=== PATIENT | female | born 1970 | race Caucasian/White ===

== ENCOUNTER 2018-03-06 08:02 | Day surgery (SDC) | payer OTHER ==
[2018-03-06] VITALS (9 sets, daily range): BP systolic 118–144; BP diastolic 67–90; PULSE 69–104; RESP 16–20; TEMP 97.2–97.8; O2SAT 96–100
[~2018-03-06] VITALS: Ht 157.5 cm; Wt 65.9 kg
[~2018-03-06 08:02] MED LIST: ACET-822 PO; LACTCAP8 PO; MELA1TAB18 PO; TH S8.6T PO; VALT500T PO; VITA500T83 PO
[2018-03-06] MEDS ORDERED: GELATIN 12 MM/7 MM FOAM I-ARTERIAL ONE ×2 (08:03→12:30)
[2018-03-06] MEDS ORDERED: IODIXANOL 320 MG/ML 50 ML VIAL (for RAD SPEC) I-ARTERIAL ONE ×2 (08:03→12:30)
[2018-03-06] MEDS: SODIUM CHLOR 0.9% 1000 ML INJ 1,000 ML IV SCH (08:30)
[2018-03-06] MEDS ORDERED: ceFAZolin 2 GM PREMIX 50 ML IV SCH (08:30)
[2018-03-06] MEDS ORDERED: DIAZEPAM 10 MG TAB PO SCH (08:30)
[2018-03-06] MEDS ORDERED: KETOROLAC TROMETHAMINE 30 MG/ML (IVP) VIAL IV PUSH SCH (08:30)
[2018-03-06] MEDS: ONDANSETRON ODT 4 MG TAB PO SCH ×2 (08:53→20:27)
[2018-03-06] MEDS ORDERED: DIAZEPAM 10 MG TAB PO ONE (10:00)
[2018-03-06] MEDS ORDERED: fentaNYL CITRATE 250 MCG/5 ML AMP ONE ×2 (10:54)
[2018-03-06] MEDS ORDERED: MIDAZOLAM HCL 5 MG/5 ML VIAL ONE (10:54)
[2018-03-06] MEDS ORDERED: NALOXONE HCL 0.4 MG/ML AMP IV PUSH PRN (11:00)
[2018-03-06] MEDS ORDERED: diphenhydrAMINE HCL 25 MG CAP PO PRN (11:00)
--- NOTE | 2018-03-06 11:27 | HHI.HP ---
HPI Service [facility] Hospitalists Primary Care Physician Dory Ackerman M.D. Admission Diagnosis Uterine mass s/p uterine artery ablation Chief Complaint: Abdominal pain Travel History International Travel<30 Days: No Contact w/Intl Traveler <30 Da: No Traveled to Known Affected Are: No History of Present Illness Mrs. Streeter is a pleasant 47 y/o female with hx of migraines and uterine fibroids who was admitted to [facility] on 03/06/18 from interventional radiology after uterine artery ablation. She has a large uterine mass thought to possible be related to uterine leiomyomas. Outpatient pelvic ultrasound in 11/2017 noted the uterus to be 19.1 cm in greatest dimension with what appeared to be a single prominent mass measuring 12.6 x 9.9 cm within the wall of the uterus radiographically consistent with leiomyoma but could not r/o neoplastic process. Pt was seen by Dr. Chavez as an outpt and pt was planned for uterine artery ablation today and then is planned to undergo surgery on Friday03/09/[address] Chavez. Pt is being admitted to the [facility] Hospitalist team following embolization for pain control and observation. Pt is seen in [facility] post- procedure and is on Dilaudid OVERSEER KOSHER KITCHEN as she had significant abd cramping after the procedure. Her pain is better controlled. She denies any chest pain, palpitations, SOB, nausea/vomiting, dizziness or headache. Review of Systems Constitutional: DENIES: Fever, Chills Eyes: DENIES: Vision loss Ears, nose, mouth, throat: DENIES: Hearing loss Respiratory: DENIES: Cough, Shortness of breath Cardiovascular: DENIES: Chest pain, Palpitations Gastrointestinal: COMPLAINS OF: Abdominal pain, Constipation (chronic), DENIES : Nausea, Vomiting Genitourinary: DENIES: Hematuria Musculoskeletal: DENIES: Neck pain Integumentary: DENIES: Rash Neurologic: DENIES: Headache Psychiatric: DENIES: Confusion Past Family Social History Past Medical History Anxiety Migraine headaches Uterine fibroids Hemorrhoids Past Surgical History Colonoscopy [place] [address] Gold Laparoscopy in 1996 Reported Medications Tylenol Extra Strength (Acetaminophen) 500 Mg Tablet 2 Tab PO DAILY Probiotic (Lactobacillus Acidophilus) 10 Billion Cell Cap 1 Cap PO DAILY Melatonin 10 Mg-1 Mg Tab 10 Mg PO HS PRN Vitamin C ER (Ascorbic Acid) 500 Mg Elan 1,000 Mg PO DAILY Valtrex (Valacyclovir HCl) 500 Mg Tab 500 Mg PO DAILY Stool Softener Tablet (Sennosides/Docusate Sodium) 8.6 Mg-50 Mg Tablet 2 Tab PO DAILY Allergies: Coded Allergies: amoxicillin (Verified Allergy, Unknown, VOMITING, 03/06/18) Allergy to Augmentin (Clavulanic acid component) clavulanic acid (Verified Allergy, Unknown, VOMITING, 03/06/18) codeine (Verified Allergy, Unknown, VOMITING, 03/06/18) Family History Mother with hx of MDS which converted to leukemia Social History No reported tobacco or illicit drug use Occasional social alcohol use Pt is She works as a teacher Physical Exam Vital Signs Vital Signs Date Time Temp Pulse Resp B/P (MAP) Pulse Ox O2 Delivery O2 Flow Rate FiO2 03/06/18 08:29 96 Room Air 03/06/18 08:14 97.8 96 18 118/73 (88) 96 Physical Exam GENERAL: This is a well-nourished, well-developed patient, in no apparent distress. SKIN: No rashes, ecchymoses or lesions. Cool and dry. HEENT: Atraumatic. Normocephalic. No temporal or scalp tenderness. No scleral icterus. Airway patent. NECK: Trachea midline, supple, nontender. CARDIO: Regular RESP: CTA bilaterally. No wheezes, rales, or rhonchi. ABD: +BS, soft, nondistended, mild diffuse tenderness. EXT: Extremities without clubbing, cyanosis, or edema. NEURO: Awake and alert. Motor and sensory grossly within normal limits. Normal speech. Imaging Last Impressions Embolization, Transcatheter 03/06/18 0000 Signed Impressions: CONCLUSION: Uncomplicated uterine artery embolization as above. Caprini VTE Risk Assessment Caprini VTE Risk Assessment: No/Low Risk (score <= 1) Caprini Risk Assessment Model Point Value = 1 Point Value = 2 Point Value = 3 Point Value = 5 Age 41-60 Minor surgery BMI > 25 kg/m2 Swollen legs Varicose veins or History of unexplained or recurrent spontaneous Oral contraceptives or hormone replacement Sepsis (< 1 month) Serious lung disease, including pneumonia (< 1 month) Abnormal pulmonary function Acute myocardial infarction Congestive heart failure (< 1 month) History of inflammatory bowel disease Medical patient at bed rest Age 61-74 Arthroscopic surgery Major open surgery (> 45 min) Laparoscopic surgery (> 45 min) Malignancy Confined to bed (> 72 hours) Immobilizing plaster cast Central venous access Age >= 75 History of VTE Family history of VTE Factor V Leiden Prothrombin [id number] Lupus anticoagulant Anticardiolipin antibodies Elevated serum homocysteine Heparin-induced thrombocytopenia Other congenital or acquired thrombophilia Stroke (< 1 month) Elective arthroplasty Hip, pelvis, or leg fracture Acute spinal cord injury (< 1 month) Prophylaxis Regimen Total Risk Factor Score Risk Level Prophylaxis Regimen 0-1 Low Early ambulation 2 Moderate Order ONE of the following: *Sequential Compression Device (SCD) *Heparin 5000 units SQ BID 3-4 Higher Order ONE of the following medications: *Heparin 5000 units SQ TID *Enoxaparin/Lovenox 40 mg SQ daily (WT < 150 kg, CrCl > 30 mL/min) *Enoxaparin/Lovenox 30 mg SQ daily (WT < 150 kg, CrCl > 10-29 mL/min) *Enoxaparin/Lovenox 30 mg SQ BID (WT < 150 kg, CrCl > 30 mL/min) AND/OR *Sequential Compression Device (SCD) 5 or more Highest Order ONE of the following medications: *Heparin 5000 units SQ TID (Preferred with Epidurals) *Enoxaparin/Lovenox 40 mg SQ daily (WT < 150 kg, CrCl > 30 mL/min) *Enoxaparin/Lovenox 30 mg SQ daily (WT < 150 kg, CrCl > 10-29 mL/min) *Enoxaparin/Lovenox 30 mg SQ BID (WT < 150 kg, CrCl > 30 mL/min) AND *Sequential Compression Device (SCD) Assessment and Plan Problem List: (1) Enlarged uterus ICD Codes: N85.2 - Hypertrophy of uterus Status: Chronic Plan: - Pt is a 47 y/o female with hx of migraines and uterine fibroids who was admitted to [facility] on 03/06/18 from interventional radiology after uterine artery ablation. - She has a large uterine mass thought to possible be related to uterine leiomyomas. Outpatient pelvic ultrasound in 11/2017 noted the uterus to be 19.1 cm in greatest dimension with what appeared to be a single prominent mass measuring 12.6 x 9.9 cm within the wall of the uterus radiographically consistent with leiomyoma but could not r/o neoplastic process. - Pt was seen by Dr. Chavez as an outpt and underwent uterine artery ablation on 03/06 - Pt is planned to undergo Robotic assisted laparoscopic hysterectomy on Friday03/09/[address] Chavez. - Pt is being admitted to the [facility] Hospitalist team following embolization for pain control and observation. - Pt is currently on Dilaudid OVERSEER KOSHER KITCHEN as she had significant abd cramping after the procedure. Her pain is better controlled. - Antiemetics PRN - Meds for constipation precautions - Diet as tolerated - Supportive care - DVT prophylaxis with SCDs Assessment and Plan Patient examined. Assessment and plan formulated with Shannon Cooper PA-C. I agree with the above. uterine artery ablation. hysterectomy on Friday. dc tomorrow planned. pcp pump. Shannon Cooper Mar 06, 2018 11:27 Daryl Carrera MD Mar 06, 2018 17:18
[2018-03-06] MEDS ORDERED: ACETAMINOPHEN 325 MG TAB PO PRN ×2 (11:45→13:00)
[2018-03-06] MEDS ORDERED: ONDANSETRON ODT 4 MG TAB PO PRN ×2 (11:45→13:15)
[2018-03-06] MEDS ORDERED: HYDROmorphone HCL PF 2 MG/ML VIAL ONE (12:59)
[2018-03-06] MEDS: HYDROmorphone HCL PCA 6 MG/30 ML IV SCH ×2 (13:31→16:55)
[2018-03-06] MEDS ORDERED: LEVOFLOXACIN 500 MG PREMIX INJ 100 ML IV SCH (14:00)
[2018-03-06] MEDS ORDERED: LEVOFLOXACIN 500 MG TAB PO SCH (14:00)
--- NOTE | 2018-03-06 14:51 | PD.ONC.PN ---
Subjective Subjective Remarks pt resting in ROPU using CLINICAL EDUCATION COORDINATOR pump, states it has helped a lot with the cramping she had no questions in regards to bowel prep Objective Data Date Time Temp Pulse Resp B/P (MAP) Pulse Ox O2 Delivery O2 Flow Rate FiO2 03/06/18 08:29 96 Room Air 03/06/18 08:14 97.8 96 18 118/73 (88) 96 Administered Medications Medications (Trade) Dose Ordered Sig/Karis Route PRN Reason Start Time Stop Time Status Last Admin Dose Admin Diazepam (Valium) 10 mg UNIVERSITY ARCHIVIST PO 03/06/18 08:30 03/09/18 08:29 03/06/18 09:27 Ketorolac Tromethamine (Toradol Inj) 30 mg UNIVERSITY ARCHIVIST IV PUSH 03/06/18 08:30 03/09/18 08:29 03/06/18 09:26 Ondansetron HCl (Zofran Odt) 4 mg UNIVERSITY ARCHIVIST PO 03/06/18 08:30 03/09/18 08:29 03/06/18 08:53 Hydromorphone HCl (Dilaudid CLINICAL EDUCATION COORDINATOR Inj) 6 mg UNSCH IV 03/06/18 11:15 03/06/18 13:31 Objective Remarks GENERAL: Well-nourished, well-developed patient. SKIN: Warm and dry. HEAD: Normocephalic. EYES: No scleral icterus. No injection or drainage. CARDIOVASCULAR: Regular rate and rhythm without murmurs. MUSCULOSKELETAL: Adequate muscle tone. NEUROLOGICAL: No obvious focal deficit. Awake but sleepy, and oriented x3. PSYCHIATRIC: Appropriate mood and affect; insight and judgment normal. Assessment/Plan Problem List: (1) Enlarged uterus ICD Codes: N85.2 - Hypertrophy of uterus Status: Chronic Plan: s/p uterine artery embolization pt admitted to hospitalist service for pain control with CLINICAL EDUCATION COORDINATOR patient for RA Yue ch on Friday03/09/18 she wishes to keep her ovaries if possible. bowel prep on 03/08/18 Anali Feliciano Mar 06, 2018 14:51
--- NOTE | 2018-03-06 15:07 | RADRPT ---
EXAM DATE: 03/06/2018 2:25 PM EDT AGE/SEX: 47 years / Female INDICATIONS: Patient with a history of uterine fibroids. CLINICAL DATA: This is the patient's initial encounter. Patient reports that signs and symptoms have been present for 4 - 6 months and indicates a pain score of 3/10. MEDICAL/SURGICAL HISTORY: AnxietyHemorrhoidsUterine fibroids ColonoscopyLaproscopy COMPARISON: . FLUORO TIME (min): 13.7 IMAGE SERIES: 12 ACCESS SITE: Right femoral artery SEDATION TIME (min): 45 CONTRAST (cc): 90 Visipaque (iodixanol) MEDICATION(S): 5mg midazolam (Versed) IV 250mcg fentanyl (Sublimaze) IV Vancomycin within 2 hrs of procedure, Ancef (or alternative) within 1 hr of procedure. DEVICE(S): Right uterine artery Gelfoam Left uterine artery Gelfoam Right common femoral artery starclose . . PROCEDURE: 1. Ultrasound-guided puncture of the right common femoral artery. 2. Right femoral sheath arteriography 3. Nonselective aortic catheterization. 4. Pelvic arteriography. 5. Subselective catheterization, right uterine artery. 6. Right uterine artery arteriogram. 7. Embolization of the right uterine artery. 8. Follow-up arteriography postembolization, right internal iliac artery 9. Subselective catheterization, left uterine artery 10. Left uterine arteriography 11. Transcatheter embolization of the left uterine artery 12. Follow-up arteriography postembolization, left internal iliac artery 13. Right femoral arteriotomy closure was*closed device 14. Continuous pulse oximetry, hemodynamic and EKG monitoring. 15. Intravenous conscious sedation The risks, benefits and alternatives to the procedure were explained and verbal and written consent w as obtained. The site was prepped in sterile fashion. Full sterile technique was used, including ca p, mask, sterile gloves and gown and a large sterile sheet. Hand hygiene and 2% chlorhexidine and/or betadine/alcohol prep was utilized per protocol for cutaneous antisepsis. Sterile gel and sterile p robe cover were utilized for ultrasound guidance. The skin and subcutaneous tissues were infiltrated with local anesthetic solution. With ultrasound and fluoroscopic guidance the right femoral artery was punctured. The ultrasound romeo ges depicting access guidance were saved and stored in PACS for permanent record. A 4 Tajik vascular sheath was introduced. Sheath arteriography was performed to evaluate the femoral artery for later c losure. An Omni Flush catheter was manipulated into the low abdominal aorta and digital subtraction p elvic arteriography was performed. The Omni Flush catheter was used to select over aortic bifurcation and an angled Glidewire was manipu lated into the left internal iliac artery. A 4 Tajik Cobra catheter was introduced to the internal i liac artery. Imaging was performed to identify the uterine artery. The uterine artery was subsequent catheterized and angiography was performed demonstrating multiple feeding vessels supplying the uter ine fibroids. Embolization was performed using the prescribed size of Gelfoam slurry to complete sta sis. Followup angiography from the internal iliac vessel demonstrates complete stasis and no antegra de flow within the left uterine artery. An Omni Flush catheter was then used to select the ipsilateral right internal iliac artery where imag ing was performed to identify the uterine artery. The uterine artery was subsequently catheterized w ith a 4 Tajik Cobra catheter and angiography was performed demonstrating multiple feeding vessels bocanegra pplying the uterine fibroids. Embolization was performed using the prescribed dose of polyvinyl alco hol and Gelfoam slurry to complete stasis. Followup angiography from the internal iliac vessel demon strates complete stasis and no antegrade flow within the right uterine artery. Conscious sedation was performed with the prescribed dosages and duration as above in the presence of an independent trained radiology nurse to assist in the monitoring of the patient. EKG and oximetry remained stable throughout the procedure. The patient tolerated the procedure well and there were n o complications. The patient was sent to post anesthesia recovery in stable condition. FINDINGS: Classical pelvic arterial anatomy is identified. The iliacs are widely patent bilaterally. Uterine arteries are enlarged bilaterally without evidence of collateral flow to ovaries or other pe lvic structures. CONCLUSION: Uncomplicated uterine artery embolization as above. Electronically signed by: Duke Robison MD 03/06/2018 3:06 PM EDT
[2018-03-06] MEDS ORDERED: MAGNESIUM HYDROXIDE SUSP 30 ML CUP PO PRN (15:30)
[2018-03-06] MEDS ORDERED: BISACODYL 10 MG SUPP RECTAL PRN (15:30)
[2018-03-06] MEDS ORDERED: SENNOSIDES 8.6 MG TAB PO PRN (15:30)
[2018-03-06] MEDS: DOCUSATE SODIUM 50 MG/SENNA 8.6 MG TAB PO SCH (20:27)
[2018-03-06] MEDS: diphenhydrAMINE HCL 50 MG/ML VIAL IV PUSH PRN (21:11)
[2018-03-06] MEDS: PCA - TOTAL MG DILAUDID DELIVERED PER SHIFT SCH (22:00)
[2018-03-06] MEDS ORDERED: methylPREDNISolone SOD SUCC 125 MG/2 ML VIAL IV ONE (23:45)
[2018-03-07 00:05] VITALS: BP 132/77; PULSE 109; RESP 17; TEMP 97.7; O2SAT 97
[2018-03-07] MEDS: diphenhydrAMINE HCL 50 MG/ML VIAL IV PUSH PRN (04:17)
[2018-03-07] MEDS: SODIUM CHLOR 0.9% 1000 ML INJ 1,000 ML IV SCH (04:22)
[2018-03-07 04:37] VITALS: BP 143/88; PULSE 104; RESP 17; TEMP 97.9; O2SAT 99
[2018-03-07] MEDS: PCA - TOTAL MG DILAUDID DELIVERED PER SHIFT SCH (06:00)
[2018-03-07] MEDS: HYDROmorphone HCL PCA 6 MG/30 ML IV SCH (07:37)
[2018-03-07 08:00] VITALS: BP 134/72; PULSE 110; RESP 19; TEMP 98; O2SAT 98
[2018-03-07] MEDS ORDERED: oxyCODONE/ACETAMINOPHEN 5 MG/325 MG TAB PO PRN (08:30)
--- NOTE | 2018-03-07 08:42 | HHI.PR ---
Subjective Remarks Pt reports that she developed a rash on her back, chest and face last night Pt was given Benadryl and a dose of IV Solu-Medrol and feels that the rash is much improved this morning She had not been using as much of the Dilaudid [employer]ESPERSON WOMEN'S DRESSES overnight but had increased pain Objective Vitals Vital Signs Date Time Temp Pulse Resp B/P (MAP) Pulse Ox O2 Delivery O2 Flow Rate FiO2 03/07/18 07:37 18 03/07/18 06:00 16 03/07/18 04:37 97.9 104 17 143/88 (106) 99 03/07/18 00:05 97.7 109 17 132/77 (95) 97 03/06/18 22:00 18 03/06/18 20:17 97.2 101 16 144/82 (102) 100 03/06/18 17:02 97.3 104 18 119/67 (84) 99 03/06/18 16:55 16 03/06/18 15:00 91 16 135/90 (105) 98 03/06/18 14:30 94 16 130/80 (97) 98 03/06/18 14:00 73 16 120/81 (94) 98 03/06/18 13:30 69 18 118/80 (93) 98 03/06/18 13:15 74 20 137/81 (99) 97 03/06/18 13:00 97.5 88 20 142/87 (105) 96 Imaging Last Impressions Embolization, Transcatheter 03/06/18 0000 Signed Impressions: CONCLUSION: Uncomplicated uterine artery embolization as above. Objective Remarks General: NAD, AAOx3 Chest: CTA Cardiac: Regular Abd: +BS, soft nondistended, mild tenderness Ext: No edema A/P Problem List: (1) Enlarged uterus ICD Codes: N85.2 - Hypertrophy of uterus Status: Chronic Plan: - Pt is a 47 y/o female with hx of migraines and uterine fibroids who was admitted to [facility] on 03/06/18 from interventional radiology after uterine artery ablation. - She has a large uterine mass thought to possible be related to uterine leiomyomas. Outpatient pelvic ultrasound in 11/2017 noted the uterus to be 19.1 cm in greatest dimension with what appeared to be a single prominent mass measuring 12.6 x 9.9 cm within the wall of the uterus radiographically consistent with leiomyoma but could not r/o neoplastic process. - Pt was seen by Dr. Chavez as an outpt and underwent uterine artery ablation on 03/06 - Pt is planned to undergo Robotic assisted laparoscopic hysterectomy on Friday03/09/[address] Chavez. - Pt developed a rash overnight on her back, chest and face. - She was given Benadryl and Solu-Medrol with improvement. Pt had been given Ancef and Levaquin IV yesterday post-procedurally. Difficult to tell which may have caused the rash - Pt is currently on Dilaudid [employer]ERSON [employer]OM[employer]S DRESSES but will be changed to oral Percocet for discharge. - Pt is to continue on scheduled Benadryl today and tomorrow and we will give a dose of Prednisone 20mg today and another dose tomorrow for the rash. - Pt can continue the Zofran ODT 4mg Q4-6 hours upon discharge. - Meds for constipation precautions - Diet as tolerated - Discussed with the nurse that she should call radiology to inform them about the pts reaction she had last night and to see if they have any other orders for the pt for discharge. - Anticipate d/c this afternoon Assessment and Plan Patient examined. Assessment and plan formulated with Shannon Cooper PA-C. I agree with the above. s/p uterine artery ablation pt had drug allergy with rash overnight. she took levaquin and ancef at same time and so hard to decide which one. of note the pt has taken cipro in past which would seem to make it less likely to be levaquin. most likely the ancef. she is not allergic to amoxacillin like [employer] says. she gets n/v with augmentin. rash improving with benadryl and prednisone. will dc home today. takes percocet ok. Shannon Cooper Mar 07, 2018 08:42 Daryl Carrera MD Mar 07, 2018 12:41
[2018-03-07] MEDS ORDERED: BENA25CA4 PO (08:44)
[2018-03-07] MEDS ORDERED: PRED20 PO (08:44)
[2018-03-07] MEDS ORDERED: ONDA4TAB7 PO (08:44)
--- NOTE | 2018-03-07 08:46 | HHI.DCPOC ---
Discharge Care Plan Diagnosis: (1) Enlarged uterus Goals to Promote Your Health * To prevent worsening of your condition and complications * To maintain your health at the optimal level Directions to Meet Your Goals Take your medications as prescribed Follow your dietary instruction Follow activity as directed Keep your appointments as scheduled Take your immunizations and boosters as scheduled If your symptoms worsen call your PCP, if no PCP go to Urgent Care Center or Emergency Room Smoking is Dangerous to Your Health. Avoid second hand smoke Call the 24-hour hour crisis hotline for domestic abuse at Shannon Cooper Mar 07, 2018 08:46
[2018-03-07] MEDS ORDERED: predniSONE 20 MG TAB PO SCH (09:00)
[2018-03-07] MEDS ORDERED: ONDANSETRON ODT 4 MG TAB PO ONE (09:00)
[2018-03-07] MEDS: DOCUSATE SODIUM 50 MG/SENNA 8.6 MG TAB PO SCH (09:19)
[2018-03-07] MEDS: oxyCODONE/ACETAMINOPHEN 5 MG/325 MG TAB PO PRN ×2 (09:20→13:51)
[2018-03-07] MEDS ORDERED: diphenhydrAMINE HCL 25 MG CAP PO SCH (11:00)
[2018-03-07] MEDS ORDERED: PERC5TAB12 PO (11:18)
[2018-03-07 12:00] VITALS: BP 137/73; PULSE 116; RESP 20; TEMP 98.4; O2SAT 97
== END 2018-03-07 14:01 | disposition home or self-care (01) ==
LOC: HROP 08:02 → HRIP 08:04 → N07B 16:40 → HROP 03-07 14:01
PROVIDERS: ATTEND Obstetrics & Gynecology Gynecologic Oncology
DX: D25.9 Leiomyoma of uterus, unspecified (principal); D75.82 Heparin induced thrombocytopenia (HIT); D68.51 Activated protein C resistance; F41.9 Anxiety disorder, unspecified; Z86.718 Personal history of other venous thrombosis and embolism; Z88.0 Allergy status to penicillin; Z88.5 Allergy status to narcotic agent
CPT/HCPCS: 36247; 37243; 75736; 86850; 86900; 86901; 99152; 99153; C1760; C1769; C1887; C1894; J0690; J1170; J1200; J1885; J1956; J2250; J2930; J3010; J7030; J7512; Q9967

== ENCOUNTER 2018-03-09 08:23 | Inpatient (IN) | payer OTHER ==
[~2018-03-09] VITALS: Ht 157.5 cm; Wt 67.3 kg
[~2018-03-09 08:23] MED LIST changes: -ACET-822 PO; +BENA25CA4 PO; +ONDA4TAB7 PO; +PERC5TAB12 PO; +PRED20 PO
[2018-03-09] MEDS ORDERED: METOPROLOL TARTRATE 25 MG TAB PO PRN (09:00)
[2018-03-09] MEDS ORDERED: ceFAZolin 1,000 MG/NS 100 ML IV SCH ×2 (09:00)
[2018-03-09] MEDS ORDERED: POVIDONE IODINE 5% (ANTISEPSIS KIT) 4 APPLICATIONS EACH NARE PRN (09:00)
[2018-03-09] MEDS: LACTATED RINGER'S 1000 ML IV PRN (09:00)
[2018-03-09] MEDS ORDERED: SODIUM CHLORID 0.9% 500 ML IV PRN (09:00)
[2018-03-09] MEDS ORDERED: CHLORHEXIDINE GLUCONATE 2 % 1 PACK (2 CLOTHS) TOPICAL PRN (09:00)
[2018-03-09] MEDS ORDERED: HEPARIN SODIUM - SQ 10,000 UNITS/ML VIAL SQ SCH (09:00)
[2018-03-09] MEDS ORDERED: DULC100C PO (09:11)
[2018-03-09] MEDS ORDERED: [UNRECOGNIZED DRUG - CODE] (09:11)
[2018-03-09] MEDS ORDERED: LEVOFLOXACIN 500 MG PREMIX INJ 100 ML IV SCH (09:30)
[2018-03-09] MEDS ORDERED: METRONIDAZOLE 500 MG/100 ML ISONTONIC SOLN IV SCH (09:30)
[2018-03-09] MEDS ORDERED: MORPHINE SULFATE 4 MG/ML INJ ONE (10:18)
[2018-03-09] MEDS ORDERED: ONDANSETRON HCL 4 MG/2 ML VIAL ONE (10:18)
[2018-03-09] MEDS ORDERED: ROPIVACAINE 0.5% PF INJ 30 ML VIAL ONE (11:54)
[2018-03-09] MEDS ORDERED: ROPIVACAINE 1% PF INJ 20 ML AMP ONE (11:55)
[2018-03-09] MEDS ORDERED: LACTATED RINGER'S 1000 ML INJ 2,000 ML IV ONE (12:00)
[2018-03-09] MEDS ORDERED: KETOROLAC TROMETHAMINE 30 MG/ML (IVP) VIAL IV PUSH ONE (12:00)
[2018-03-09] MEDS ORDERED: DEXAMETHASONE SOD PHOS 4 MG/ML VIAL IV ONE (12:00)
[2018-03-09] MEDS ORDERED: PHENYLEPH/NS 1000 MCG/10 ML SYR IV ONE (12:00)
[2018-03-09] MEDS ORDERED: ROCURONIUM INJ 50 MG/5 ML SYRINGE IV PUSH ONE (12:00)
[2018-03-09] MEDS ORDERED: PROPOFOL 200 MG/20 ML AMP IV ONE (12:00)
[2018-03-09] MEDS ORDERED: ONDANSETRON HCL 4 MG/2 ML VIAL IV PUSH ONE (12:00)
[2018-03-09] MEDS ORDERED: LIDOCAINE HCL 1% PF 5 ML SYRINGE OTHER ONE (12:00)
[2018-03-09] MEDS ORDERED: SUGAMMADEX SODIUM 200 MG/2 ML VIAL IV PUSH ONE (14:52)
[2018-03-09] MEDS ORDERED: MIDAZOLAM HCL 2 MG/2 ML VIAL ONE (14:54)
[2018-03-09] MEDS ORDERED: NALOXONE HCL 0.4 MG/ML AMP IV PUSH PRN (15:45)
[2018-03-09] MEDS: PCA - TOTAL MG MORPHINE DELIVERED PER SHIFT SCH ×2 (15:45→22:00)
[2018-03-09] MEDS ORDERED: SODIUM CHLORIDE 0.9% FLUSH 10 ML FLUSH IV FLUSH PRN ×2 (15:45)
[2018-03-09] MEDS ORDERED: DO NOT ADM ANY ANTICOAGULANT DRUGS PRN (16:00)
[2018-03-09] MEDS: D5-1/2 NS + KCL 20 MEQ INJ 1,000 ML IV SCH ×2 (16:00→23:07)
[2018-03-09] MEDS ORDERED: *morphine SULFATE 8 MG/ML PERIprocedure ONLY ONE ×2 (16:25→16:38)
[2018-03-09] MEDS ORDERED: *PROMETHAZINE 25 MG/ML VIAL PERIprocedural use ONLY ONE (16:29)
[2018-03-09] MEDS ORDERED: HYDROmorphone HCL PF 2 MG/ML VIAL ONE (16:47)
[2018-03-09] MEDS: KETOROLAC TROMETHAMINE 30 MG/ML (IVP) VIAL IVP SCH ×2 (16:55→23:06)
[2018-03-09 18:04] VITALS: BP 146/86; PULSE 102; RESP 18; TEMP 98.7; O2SAT 98
[2018-03-09 18:16] VITALS: PULSE 100
[2018-03-09 20:13] VITALS: PULSE 98
[2018-03-09 20:57] VITALS: BP 141/86; PULSE 104; RESP 18; TEMP 98.3; O2SAT 100
[2018-03-09] MEDS: SODIUM CHLORIDE 0.9% FLUSH 10 ML FLUSH IV FLUSH SCH (20:58)
[2018-03-09] MEDS: DOCUSATE SODIUM 100 MG CAP PO SCH (20:58)
[2018-03-09] MEDS ORDERED: SODIUM CHLORIDE 0.9% FLUSH 10 ML FLUSH IV FLUSH SCH (21:00)
[2018-03-09] MEDS: LORazepam 0.5 MG TAB PO PRN (23:07)
[2018-03-10] VITALS (14 sets, daily range): BP systolic 128–152; BP diastolic 76–94; PULSE 111–136; RESP 16–20; TEMP 97.5–100.9; O2SAT 94–100
[2018-03-10] MEDS: oxyCODONE/ACETAMINOPHEN 5 MG/325 MG TAB PO PRN ×2 (03:10→16:09)
[2018-03-10] MEDS: ONDANSETRON ODT 4 MG TAB PO PRN (03:14)
[2018-03-10] MEDS: KETOROLAC TROMETHAMINE 30 MG/ML (IVP) VIAL IVP SCH ×4 (05:46→23:06)
[2018-03-10 05:51] LABS: BASOPHIL % 0.2 % (0.0-2.0); EOSINOPHIL % 0.2 % (0.0-4.0); HEMATOCRIT 30.9 % (35.0-46.0); HEMOGLOBIN 10.1 GM/DL (11.6-15.3); LYMPH % 5.8 % (9.0-44.0); LYMPHOCYTE # 0.8 TH/MM3 (1.0-4.8); MEAN CELL VOLUME 80.2 FL (80.0-100.0); MEAN CORPUSCULAR HEMOGLOBIN 26.3 PG (27.0-34.0); MEAN CORPUSCULAR HGB CONC 32.7 % (32.0-36.0); MEAN PLATELET VOLUME 8.8 FL (7.0-11.0); MONO % 6.7 % (0.0-8.0); MONOCYTE # 0.9 TH/MM3 (0-0.9); NEUT % 87.1 % (16.0-70.0); PLATELET COUNT 268 TH/MM3 (150-450); RED BLOOD COUNT 3.85 MIL/MM3 (4.00-5.30); RED CELL DISTRIBUTION WIDTH 16.8 % (11.6-17.2); WHITE BLOOD COUNT 13.7 TH/MM3 (4.0-11.0)
[2018-03-10] MEDS: PCA - TOTAL MG MORPHINE DELIVERED PER SHIFT SCH ×3 (06:00→21:47)
[2018-03-10 06:17] LABS: BICARBONATE 25.2 MEQ/L (21.0-32.0); CALCIUM 7.8 MG/DL (8.5-10.1); CREATININE 0.62 MG/DL (0.50-1.00)
--- NOTE | 2018-03-10 07:28 | HHI.PR ---
Subjective . c/o pain, fatigue, poor night's sleep some nausea Objective . Tmax 100.9, hr 98-134, 18-20,BP stable i/o > 30ml/hr K 3.3 hgb 10 alert, anxious, uncomfortable , nad lungs cta at apices, basilar rales, abd soft, clean, dry, education reporter no bleeding ext nt, scds in place. Assessment/Plan . POD #1 doing ok in early post-op period findings at surgery and preliminary path reviewed continue ivf, replace K symptomatic meds for nausea, pain, anxiety increase spirometry, oob to chair, ambulate with assistance d/c michelle when ambulatory, u/a with c&s Laura Chavez MD Mar 10, 2018 07:28
[2018-03-10] MEDS: LORazepam 0.5 MG TAB PO PRN ×2 (08:02→23:05)
[2018-03-10] MEDS: DOCUSATE SODIUM 100 MG CAP PO SCH ×2 (08:02→20:13)
[2018-03-10] MEDS: DOCUSATE SODIUM 50 MG/SENNA 8.6 MG TAB PO SCH (08:02)
[2018-03-10] MEDS: SODIUM CHLORIDE 0.9% FLUSH 10 ML FLUSH IV FLUSH SCH ×2 (08:03→20:17)
[2018-03-10] MEDS: D5-1/2 NS + KCL 20 MEQ INJ 1,000 ML IV SCH ×3 (08:03→23:42)
[2018-03-10] MEDS: POTASSIUM CHLOR 20 MEQ PREMIX 100 ML IV SCH ×2 (08:04→09:43)
[2018-03-10] MEDS: valACYclovir HCL 500 MG TAB PO SCH (08:04)
[2018-03-10] MEDS: MORPHINE SULFATE 30 MG/30 ML PCA IV SCH ×2 (08:19→17:37)
[2018-03-10 09:38] LABS: BILIRUBIN, URINE NEG (NEG); BLOOD, URINE NEG (NEG); GLUCOSE,URINE NEG (NEG); KETONE, URINE NEG (NEG); NITRITE,URINE NEG (NEG); URINE COLOR Straw (YELLW/STRAW); URINE LEUKOCYTE ESTERASE NEG (NEG)
--- NOTE | 2018-03-10 15:13 | MP ---
cc: Laura Chavez MD, Andrew H MD Casimiro,Dory ALEXANDER DATE OF OPERATION: 03/09/2018 DATE OF PROCEDURE: 03/09/2018. PREOPERATIVE DIAGNOSIS: Markedly enlarged uterus with multiple uterine masses. POSTOPERATIVE DIAGNOSIS: Markedly enlarged uterus with multiple uterine masses. PROCEDURE: Exploratory laparotomy, total abdominal hysterectomy, bilateral salpingectomy, bilateral oophoropexy and aspiration of right ovarian cyst. SURGEON: Laura Chavez MD LICENS[address] COURT MAGISTRATE: [place] data control assistant. ANESTHESIA: General endotracheal anesthesia. ESTIMATED BLOOD LOSS: 250 mL. IV FLUIDS: 1300 mL. URINE OUTPUT: 600 mL. INDICATIONS FOR PROCEDURE: This is a 47-year-old female with symptomatic markedly enlarged uterus radiographically thought to be consistent with leiomyomas, whereas the fibroids have been present for many years. They have been gradually increasing in size and becoming more symptomatic. She has been counseled extensively regarding treatment options including the pros and cons of surgery. She has undergone a trial of Depo-Lupron as well as preoperative uterine artery embolization. She has been counseled in detail and is in favor of definitive surgery. She is seen again in the preoperative holding area where the findings and plan of care are again discussed. She is in favor of having the uterus and cervix removed. She would like the fallopian tubes removed, would like her ovaries preserved unless there is a risk of malignancy in the ovaries or if there is a definitive malignancy in the uterus. FINDINGS: The uterus was enlarged to between 18 and 20 cm, firm, wide fundus, wide lower uterine segment, but it did narrow down into a normal-appearing long cervix. There was no overt adenopathy in the pelvis or periaortic region. The left tube and ovary grossly appeared normal. The right ovary had a functional-appearing cyst with a small hemorrhagic cyst but no neoplastic change. Frozen section analysis of the uterus was consistent with multiple leiomyomas. There was no overt change on preliminary assessment to suggest malignancy. Assessment of the peritoneal cavity showed the liver diaphragm edges to be smooth. The large and small bowel and adjacent mesentery were normal, without obvious implants. No adenopathy or other significant abnormality. DESCRIPTION OF PROCEDURE: She was taken to the operating room and placed in dorsal lithotomy position after general endotracheal anesthesia was administered. A timeout was undertaken. She was identified by site recognition and hospital ID bracel and the proposed procedure was reviewed and confirmed. She was carefully positioned in Yellofin stirrups. Arms were relaxed out to the sides. All sites were noted to be properly aligned with no malalignment or pressure points. She was prepped and draped in sterile fashion, Ribeiro catheter placed in the bladder. Incision was made from the symphysis toward the umbilicus, carried down to the level of the fascia. The fascia was entered. The rectus muscles were in the midline and the peritoneal cavity was entered. Initial assessment confirmed the size and width of the uterus at that time with limited mobility and excision was extended to the level of the umbilicus. The uterus was able to be delivered through the abdominal wall incision, which allowed better understanding of the anatomy and better exposure to the lower uterine segment and cervix. Bookwalter retractor and lap pads were used to assist in surgical exposure. The right round ligament was doubly suture ligated, transected. The anterior and posterior leaves of the broad ligament were opened. The right ureter was identified and the intervening peritoneum was opened and the right uteroovarian ligament was doubly clamped, cut, and suture ligated thereby preserving the right tube and ovary. A small rent was made in the cyst on the right ovary and it was drained. Overall, it had a clear fluid and benign appearance with a small hemorrhagic component and no evidence of neoplasm. Attention was directed toward the left side where the left round ligament was doubly suture ligated and transected. The anterior and posterior leaves of the broad ligament were opened. The left ureter was identified. The intervening peritoneum was opened. The left uteroovarian ligament was isolated, doubly clamped, cut and doubly suture ligated, thereby preserving the left tube and ovary. The vesicouterine peritoneum was dissected off the lower uterine segment and cervix and the dissection was carried down below the level of the cervix. Posterior peritoneum was opened bilaterally and the uterine vessels were skeletonized bilaterally. Now, the uterine vessels were doubly clamped bilaterally, further showing the uterus to rohan with some preliminary blanching already noted given that she was status post prior embolization. On the right side, the uterine vessels were transected and doubly suture ligated. The cardinal, paracervical and uterosacral ligaments were isolated being clamped, cut, and suture ligated in a stepwise fashion immediately adjacent to the cervix in a stepwise fashion until a curved Savage clamp could be placed below the cervix at the lateral vaginal angle. Attention was then directed to the left side where similarly the left uterine vessels were transected, doubly suture ligated. The cardinal, paracervical and uterosacral ligaments were isolated, clamped, cut, and suture ligated in a stepwise fashion until a curved Savage clamp could be placed below the cervix at the left vaginal angle. Sharp dissection was used to separate the cervix from the upper vagina. The specimen was inspected and it appeared as though the entire cervix had been resected. It was sent for frozen section analysis. The corners of the vaginal apex were secured with [id number] sutures including the posterior peritoneum and edge of the uterosacral ligament. There was asymmetry in that there was additional tissue along the anterior edge of the cervix, raising the possibility of a small rim of residual cervix, which was then removed with sharp dissection and labeled as cervicovaginal margin. The vaginal cuff was then closed with interrupted [id number] 0 Vicryl sutures which rendered the cuff completely hemostatic, well supported. Next attention was directed to the adnexa. The right fallopian tube was isolated, elevated with [place] clamp and cautery and sharp dissection were used to remove the entire right fallopian tube. Small bleeders were rendered hemostatic with bipolar cautery and then a 0 Vicryl suture was used to pex the right ovary to the round ligament remnant with [id number] suture closure and the adjacent peritoneal defect was closed with a running suture with the blood supply aligned in normal anatomical alignment. Attention was directed toward the left side where similarly the left fallopian tube was elevated with Margie clamps. Sharp dissection cautery was used to remove the left fallopian tube, and then the left ovary was pexed to the pelvic sidewall using the residual utero-ovarian ligament and the round ligament, sutured with 0 Vicryl suture and the adjacent peritoneal defect was closed with normal anatomical alignment without torsion. The pelvis was thoroughly irrigated, small bleeders rendered hemostatic with bipolar cautery. There was a good margin between the bladder edge and the vaginal cuff suture line. The bladder was intact. There was good peristalsis of ureters bilaterally, adequate hemostasis. To assist in continued hemostasis, hemostatic Bashir powder was placed across the vaginal cuff and in the lateral pelvic sidewalls. Frozen section came back showing leiomyomas with no evidence of malignancy and therefore, it was felt that all reasonable surgical objectives had been completed. The Bookwalter retractor was disassembled and the lap pads were removed from the peritoneal cavity. Visual and manual inspection confirmed there were no remaining foreign objects in the peritoneal cavity. The anatomy was again surveyed with findings as described above. The abdominal wall was closed with a looped 0 PDS in a continuous modified Smead-Shah fashion starting at the apices and meeting in the midpoint where the sutures were tied. Subcutaneous tissue was irrigated and Elizabeth's fascia reapproximated with interrupted 2-0 Vicryl sutures and then a 3-0 Vicryl subcuticular closure was done. Steri-Strips were placed over the incision, followed by dry, sterile dressing. Pelvic exam confirmed there were no remaining foreign objects in the vagina. The cuff was well-supported, hemostatic. Final counts were correct. She was returned to dorsal supine position and was pending reversal of anesthesia when I left the operating room to precede her to the postanesthesia care unit and to speak to family members who were waiting in the family waiting area. MD NANCY Lee/TOYA , 02:24 PM , 03:12 PM
[2018-03-10] MEDS ORDERED: ACETAMINOPHEN 500 MG CPLT PO ONE (16:45)
--- NOTE | 2018-03-10 16:54 | PD.ONC.PN ---
Subjective Subjective Remarks post op day #1 Patient is resting in bed RN called stating patient tachycardic, pt denies cp has been OOB to ambulate and bathroom using SEAFOOD PACKER, pain at this time 6-03/31 Percocet 5/325 given pt sats 100% on room air, temp 103.0 using IS but states at times feels SOA when talking otherwise no complaints Objective Data Date Time Temp Pulse Resp B/P (MAP) Pulse Ox O2 Delivery O2 Flow Rate FiO2 03/10/18 12:43 98.7 115 20 142/86 (104) 98 03/10/18 09:23 114 03/10/18 08:58 98.6 115 16 128/76 (93) 96 03/10/18 08:19 18 03/10/18 06:00 16 03/10/18 04:02 134 03/10/18 03:30 100.9 136 18 150/81 (104) 94 03/10/18 03:19 130 03/10/18 00:01 111 03/10/18 00:00 98.8 111 18 152/94 (113) 100 03/09/18 20:57 98.3 104 18 141/86 (104) 100 03/09/18 20:13 98 03/09/18 18:16 100 03/09/18 18:04 98.7 102 18 146/86 (106) 98 03/09/18 17:15 92 13 134/70 (91) 95 Room Air 03/09/18 17:00 105 15 139/83 (101) 100 Nasal Cannula 2 03/09/18 16:45 93 16 139/85 (103) 100 Nasal Cannula 2 03/10/18 03/10/18 03/10/18 07:00 15:00 23:00 Intake Total 1450 ml 480 ml 800 ml Output Total 900 ml 1350 ml 550 ml Balance 550 ml -870 ml 250 ml Result Diagram: 03/10/1851203/10/18512 Laboratory Results Laboratory Tests Test 03/10/18 05:13 03/10/18 09:11 White Blood Count 13.7 TH/MM3 Red Blood Count 3.85 MIL/MM3 Hemoglobin 10.1 GM/DL Hematocrit 30.9 % Mean Corpuscular Volume 80.2 FL Mean Corpuscular Hemoglobin 26.3 PG Mean Corpuscular Hemoglobin Concent 32.7 % Red Cell Distribution Width 16.8 % Platelet Count 268 TH/MM3 Mean Platelet Volume 8.8 FL Neutrophils (%) (Auto) 87.1 % Lymphocytes (%) (Auto) 5.8 % Monocytes (%) (Auto) 6.7 % Eosinophils (%) (Auto) 0.2 % Basophils (%) (Auto) 0.2 % Neutrophils # (Auto) 12.0 TH/MM3 Lymphocytes # (Auto) 0.8 TH/MM3 Monocytes # (Auto) 0.9 TH/MM3 Eosinophils # (Auto) 0.0 TH/MM3 Basophils # (Auto) 0.0 TH/MM3 CBC Comment DIFF FINAL Differential Comment Blood Urea Nitrogen 5 MG/DL Creatinine 0.62 MG/DL Random Glucose 140 MG/DL Calcium Level 7.8 MG/DL Sodium Level 140 MEQ/L Potassium Level 3.3 MEQ/L Chloride Level 106 MEQ/L Carbon Dioxide Level 25.2 MEQ/L Anion Gap 9 MEQ/L Estimat Glomerular Filtration Rate 104 ML/MIN Urine Color Straw Urine Turbidity CLEAR Urine pH 8.0 Urine Specific [place] 1.004 Urine Protein NEG mg/dL Urine Glucose (UA) NEG mg/dL Urine Ketones NEG mg/dL Urine Occult Blood NEG Urine Nitrite NEG Urine Bilirubin NEG Urine Urobilinogen LESS THAN 2 mg/dL Urine Leukocyte Esterase NEG Urine RBC 2 /hpf Urine WBC 4 /hpf Microscopic Urinalysis Comment CULT NOT INDICATED Administered Medications Medications (Trade) Dose Ordered Sig/Karis Route PRN Reason Start Time Stop Time Status Last Admin Dose Admin Lactated Ringer's 1,000 ml @ 30 mls/hr Q24H PRN IV SEE LABEL COMMENTS 03/09/18 09:00 03/12/18 08:59 03/09/18 09:00 Povidone Iodine (Betadine 5% Antisepsis Kit) 1 applic SCREEN PRINT OPERATOR PRN EACH NARE SEE LABEL COMMENTS 03/09/18 09:00 03/12/18 08:59 03/09/18 09:00 Chlorhexidine Gluconate (Chlorhexidine 2% Cloth) 3 pack SCREEN PRINT OPERATOR PRN TOPICAL SEE LABEL COMMENTS 03/09/18 09:00 03/12/18 08:59 03/09/18 08:55 Metronidazole 100 ml @ 100 mls/hr SCREEN PRINT OPERATOR IV 03/09/18 09:30 03/12/18 09:29 03/09/18 11:35 Levofloxacin/ Dextrose 100 ml @ 100 mls/hr SCREEN PRINT OPERATOR IV 03/09/18 09:30 03/12/18 09:29 03/09/18 11:38 Docusate Sodium (Colace) 100 mg BID PO 03/09/18 21:00 03/10/18 08:02 Ondansetron HCl (Zofran Odt) 4 mg Q6H PRN PO NAUSEA OR VOMITING 03/09/18 15:45 03/10/18 03:14 Senna/Docusate Sodium (Bettye-Colace) 2 tab DAILY PO 03/10/18 09:00 03/10/18 08:02 Potassium Chloride/Dextrose/ Sod Cl 1,000 ml @ 125 mls/hr Q8H IV 03/09/18 15:42 03/10/18 08:03 Ketorolac Tromethamine (Toradol Inj) 30 mg Q6H IVP 03/09/18 17:00 03/12/18 11:01 03/10/18 16:10 Oxycodone/ Acetaminophen (Percocet 5-325 Mg) 1 tab Q4H PRN PO PAIN SCALE 1 TO 5 03/09/18 15:45 03/10/18 16:09 Oxycodone/ Acetaminophen (Percocet 5-325 Mg) 2 tab Q4H PRN PO PAIN SCALE 6 TO 10 03/09/18 15:45 03/10/18 03:10 Lorazepam (Ativan) 0.5 mg Q8H PRN PO ANXIETY 03/09/18 15:45 03/10/18 08:02 Morphine Sulfate (Morphine 1 Mg/ ml SEAFOOD PACKER) 30 mg UNSCH IV 03/09/18 15:45 03/10/18 08:19 SEAFOOD PACKER Dosage Infused (Pha) 1 Q8HR .XX 03/09/18 15:45 03/10/18 06:00 Objective Remarks GENERAL: Well-nourished, well-developed patient. IN NAD SKIN: Warm and dry. HEAD: Normocephalic. EYES: No scleral icterus. No injection or drainage. NECK: Supple CARDIOVASCULAR: tachycardia, no MMR RESPIRATORY: Breath sounds equal bilaterally, diminished in bases No accessory muscle use. no SOA EXTREMITIES: teds MUSCULOSKELETAL: Adequate muscle tone. NEUROLOGICAL: No obvious focal deficit. Awake, alert, and oriented x3. PSYCHIATRIC: Appropriate mood and affect; insight and judgment normal. Assessment/Plan Problem List: (1) Tachycardia ICD Codes: R00.0 - Tachycardia, unspecified Status: Acute Plan: lab stat: lactic acid, cbc with diff, TSH and free T4, BMP, mag and phos blood cultures add: levaquin 500mg Q24 hours flagyl 500mg Q 8 hours tylenol 500mg X 1 now CXR PA/Lat continue IVF and SEAFOOD PACKER Percocet for breakthrough pain Attending Statement Discussed with Dr. Chavez, patient and RN. Anali Feliciano Mar 10, 2018 16:54
[2018-03-10 17:14] LABS: AUTOMATED NEUTROPHIL # 10.4 TH/MM3 (1.8-7.7); BASOPHIL % 0.2 % (0.0-2.0); EOSINOPHIL # 0.1 TH/MM3 (0-0.4); EOSINOPHIL % 0.5 % (0.0-4.0); HEMATOCRIT 33.8 % (35.0-46.0); HEMOGLOBIN 10.8 GM/DL (11.6-15.3); LYMPH % 7.5 % (9.0-44.0); LYMPHOCYTE # 0.9 TH/MM3 (1.0-4.8); MEAN CELL VOLUME 81.4 FL (80.0-100.0); MEAN CORPUSCULAR HEMOGLOBIN 25.9 PG (27.0-34.0); MEAN CORPUSCULAR HGB CONC 31.8 % (32.0-36.0); MEAN PLATELET VOLUME 8.5 FL (7.0-11.0); MONO % 7.9 % (0.0-8.0); NEUT % 83.9 % (16.0-70.0); PLATELET COUNT 302 TH/MM3 (150-450); RED BLOOD COUNT 4.16 MIL/MM3 (4.00-5.30); WHITE BLOOD COUNT 12.4 TH/MM3 (4.0-11.0)
[2018-03-10] MEDS: metroNIDAZOLE 500 MG INJ 100 ML IV SCH (17:33)
--- NOTE | 2018-03-10 17:35 | RADRPT ---
EXAM DATE: 03/10/2018 5:30 PM EDT AGE/SEX: 47 years / Female INDICATIONS: Fever, short of breath. CLINICAL DATA: This is the patient's subsequent encounter. Patient reports that signs and symptoms h ave been present for 1 week and indicates a pain score of 0/10. MEDICAL/SURGICAL HISTORY: None. . Exploratory laparotomy. COMPARISON: No prior exams available for comparison. FINDINGS: Patchy posterior left lower lobe airspace disease with minimal airspace disease in the right lung bas e. Cardiomediastinal contours are within normal limits. Bony thorax is intact. CONCLUSION: 1. Mild patchy left lower lobe airspace disease concerning for developing pneumonia in the appropria te clinical setting. 2. Minimal right lung base airspace disease, likely atelectasis. Electronically signed by: Siddhartha Hernandez MD 03/10/2018 5:33 PM EDT
[2018-03-10 17:36] LABS: BICARBONATE 24.7 MEQ/L (21.0-32.0); CALCIUM 7.8 MG/DL (8.5-10.1); CREATININE 0.66 MG/DL (0.50-1.00); MAGNESIUM 1.7 MG/DL (1.5-2.5); PHOSPHORUS 0.7 MG/DL (2.5-4.9)
[2018-03-10 17:46] LABS: FREE T4 1.78 NG/DL (0.76-1.46)
[2018-03-10] MEDS: LEVOFLOXACIN 500 MG PREMIX INJ 100 ML IV SCH (18:41)
[2018-03-10] MEDS ORDERED: POTASSIUM PHOSPHATE/SODIUM PHOSPHATE 250 MG TAB PO SCH (20:00)
[2018-03-10] MEDS ORDERED: ICU - SODIUM PHOSPHATE 30 MMOL/NS 250 ML IV ONE ×2 (21:00)
--- NOTE | 2018-03-10 21:21 | PD.CONS ---
History of Present Illness Service medical Consult Requested By Dr. Chavez Reason for Consult tachycardia abnormal lab value Primary Care Physician Dory Ackerman M.D. Diagnoses: (1) Enlarged uterus (2) Tachycardia History of Present Illness 47 y/o female with hx of fibroids and enlarged uterus underwent friday embolization and today hysterectomy and psot op had increased heart rate and on lab work had slight elevated t4 with normal TSH,slight increase WBC count and chest xray ? infiltrate started on levaquin and flagyl and is receiving IV fluid did have episode today of heart burn one time has not recurred and has no other complaints . Review of Systems asymptomatic tachycardia Past Family Social History Allergies: Coded Allergies: cefazolin (Verified Allergy, Mild, Rash, 03/09/18) amoxicillin (Verified Adverse Reaction, Unknown, VOMITING, 03/09/18) Allergy to Augmentin (Clavulanic acid component) clavulanic acid (Verified Adverse Reaction, Unknown, VOMITING, 03/09/18) codeine (Verified Adverse Reaction, Unknown, VOMITING, 03/09/18) Past Medical History fibroid and uterine surgery Past Surgical History as above Physical Exam Vital Signs Vital Signs Date Time Temp Pulse Resp B/P (MAP) Pulse Ox O2 Delivery O2 Flow Rate FiO2 03/10/18 20:08 97.5 119 16 130/84 (99) 97 03/10/18 17:37 12 03/10/18 17:09 16 03/10/18 16:00 122 03/10/18 12:43 98.7 115 20 142/86 (104) 98 03/10/18 12:00 121 03/10/18 09:23 114 03/10/18 08:58 98.6 115 16 128/76 (93) 96 03/10/18 08:19 18 03/10/18 06:00 16 03/10/18 04:02 134 03/10/18 03:30 100.9 136 18 150/81 (104) 94 03/10/18 03:19 130 03/10/18 00:01 111 03/10/18 00:00 98.8 111 18 152/94 (113) 100 Physical Exam GENERAL: This is a well-nourished, well-developed patient, in no apparent distress. SKIN: No rashes, ecchymoses or lesions. Cool and dry. HEAD: Atraumatic. Normocephalic. No temporal or scalp tenderness. EYES: Pupils equal round and reactive. Extraocular motions intact. No scleral icterus. No injection or drainage. ENT: Nose without bleeding, purulent drainage or septal hematoma. Throat without erythema, tonsillar hypertrophy or exudate. Uvula midline. Airway patent. NECK: Trachea midline. No JVD or lymphadenopathy. Supple, nontender, no meningeal signs. CARDIOVASCULAR: Regular rate and rhythm without murmurs, gallops, or rubs. RESPIRATORY: Clear to auscultation. Breath sounds equal bilaterally. No wheezes , rales, or rhonchi. GASTROINTESTINAL: Abdomen soft, mild-tender post op nondistended. No hepato- splenomegaly, or palpable masses. No guarding. MUSCULOSKELETAL: Extremities without clubbing, cyanosis, or edema. No joint tenderness, effusion, or edema noted. No calf tenderness. Negative Homans sign bilaterally. NEUROLOGICAL: Awake and alert. Cranial nerves II through XII intact. Motor and sensory grossly within normal limits. Five out of 5 muscle strength in all muscle groups. Normal speech. Laboratory Laboratory Tests Test 03/10/18 05:13 03/10/18 09:11 03/10/18 17:00 White Blood Count 13.7 12.4 Red Blood Count 3.85 4.16 Hemoglobin 10.1 10.8 Hematocrit 30.9 33.8 Mean Corpuscular Volume 80.2 81.4 Mean Corpuscular Hemoglobin 26.3 25.9 Mean Corpuscular Hemoglobin Concent 32.7 31.8 Red Cell Distribution Width 16.8 17.0 Platelet Count 268 302 Mean Platelet Volume 8.8 8.5 Neutrophils (%) (Auto) 87.1 83.9 Lymphocytes (%) (Auto) 5.8 7.5 Monocytes (%) (Auto) 6.7 7.9 Eosinophils (%) (Auto) 0.2 0.5 Basophils (%) (Auto) 0.2 0.2 Neutrophils # (Auto) 12.0 10.4 Lymphocytes # (Auto) 0.8 0.9 Monocytes # (Auto) 0.9 1.0 Eosinophils # (Auto) 0.0 0.1 Basophils # (Auto) 0.0 0.0 CBC Comment DIFF FINAL DIFF FINAL Differential Comment Blood Urea Nitrogen 5 4 Creatinine 0.62 0.66 Random Glucose 140 126 Calcium Level 7.8 7.8 Sodium Level 140 141 Potassium Level 3.3 3.7 Chloride Level 106 110 Carbon Dioxide Level 25.2 24.7 Anion Gap 9 6 Estimat Glomerular Filtration Rate 104 96 Urine Color Straw Urine Turbidity CLEAR Urine pH 8.0 Urine Specific [place] 1.004 Urine Protein NEG Urine Glucose (UA) NEG Urine Ketones NEG Urine Occult Blood NEG Urine Nitrite NEG Urine Bilirubin NEG Urine Urobilinogen LESS THAN 2 Urine Leukocyte Esterase NEG Urine RBC 2 Urine WBC 4 Microscopic Urinalysis Comment CULT NOT INDICATED Phosphorus Level 0.7 Magnesium Level 1.7 Lactic Acid Level 1.6 Free Thyroxine 1.78 Thyroid Stimulating Hormone 3rd Gen 1.310 Date/Time Source Procedure Growth Status 03/10/18 19:03 Blood Peripheral Aerobic Blood Culture Pending Received 03/10/18 19:03 Blood Peripheral Anaerobic Blood Culture Pending Received Result Diagram: 03/10/18 1700 03/10/18 1700 Imaging Last 24 hours Impressions Chest X-Ray 03/10/18 0000 Signed Impressions: CONCLUSION: 1. Mild patchy left lower lobe airspace disease concerning for developing pneu monia in the appropriate clinical setting. 2. Minimal right lung base airspace disease, likely atelectasis. Course started on levaquin and flagyl Assessment and Plan Problem List: (1) Tachycardia ICD Codes: R00.0 - Tachycardia, unspecified Status: Acute Plan: heart rate has been in the 100-120 range now asyptomatic will follow not suggestive of any PE (2) Lung infiltrate ICD Codes: R91.8 - Other nonspecific abnormal finding of lung field Plan: chest xray does have appearance of possible developing infiltrate already on levaquin will continue and recheck chest xray and CBC tomorrow (3) Enlarged uterus ICD Codes: N85.2 - Hypertrophy of uterus Status: Chronic Plan: s/p surgery (4) Abnormal thyroid blood test ICD Codes: R79.89 - Other specified abnormal findings of blood chemistry Plan: suggest when out of hospital recheck complete thyroid panel discussed with patient no signs of hyperthyroid at this time Narciso Saini MD Mar 10, 2018 21:21
[2018-03-10] MEDS ORDERED: PANTOPRAZOLE SODIUM 40 MG VIAL IV PUSH ONE (21:30)
[2018-03-10] MEDS: LACTATED RINGER'S 1000 ML IV PRN (23:53)
[2018-03-11] VITALS (8 sets, daily range): BP systolic 120–135; BP diastolic 74–95; PULSE 96–108; RESP 18–20; TEMP 98.3–99.2; O2SAT 96–100
[2018-03-11] MEDS: metroNIDAZOLE 500 MG INJ 100 ML IV SCH ×3 (01:24→16:52)
[2018-03-11] MEDS: KETOROLAC TROMETHAMINE 30 MG/ML (IVP) VIAL IVP SCH ×4 (05:29→23:09)
[2018-03-11] MEDS: D5-1/2 NS + KCL 20 MEQ INJ 1,000 ML IV SCH ×3 (05:29→23:57)
[2018-03-11] MEDS: PCA - TOTAL MG MORPHINE DELIVERED PER SHIFT SCH ×3 (05:36→21:44)
[2018-03-11 06:26] LABS: AUTOMATED NEUTROPHIL # 7.2 TH/MM3 (1.8-7.7); BASOPHIL % 0.5 % (0.0-2.0); EOSINOPHIL # 0.3 TH/MM3 (0-0.4); HEMATOCRIT 30.6 % (35.0-46.0); LYMPH % 10.8 % (9.0-44.0); MEAN CELL VOLUME 80.9 FL (80.0-100.0); MEAN CORPUSCULAR HEMOGLOBIN 26.4 PG (27.0-34.0); MEAN CORPUSCULAR HGB CONC 32.7 % (32.0-36.0); MEAN PLATELET VOLUME 8.2 FL (7.0-11.0); MONO % 8.4 % (0.0-8.0); MONOCYTE # 0.8 TH/MM3 (0-0.9); NEUT % 77.3 % (16.0-70.0); PLATELET COUNT 240 TH/MM3 (150-450); RED BLOOD COUNT 3.79 MIL/MM3 (4.00-5.30); RED CELL DISTRIBUTION WIDTH 16.7 % (11.6-17.2); WHITE BLOOD COUNT 9.2 TH/MM3 (4.0-11.0)
[2018-03-11 07:00] LABS: BICARBONATE 24.8 MEQ/L (21.0-32.0); CALCIUM 7.3 MG/DL (8.5-10.1); CREATININE 0.53 MG/DL (0.50-1.00); FREE T4 1.75 NG/DL (0.76-1.46); PHOSPHORUS 2.6 MG/DL (2.5-4.9)
--- NOTE | 2018-03-11 07:21 | PD.ONC.PN ---
Subjective Subjective Remarks medical claims representative/onc post op day #2 pt resting in bed states she feels better today +flatus OOB to ambulate and to chair has increased oral intake afebrile overnight pain controlled with INTERNAL COMBUSTION ENGINE INSPECTOR, Toradol and Percocet Had low Phos, replaced..am labs pending Dr. Chavez consulted Hospitalist for assistance with management of elevated T4 and post-op atelectasis Objective Data Date Time Temp Pulse Resp B/P (MAP) Pulse Ox O2 Delivery O2 Flow Rate FiO2 03/11/18 05:36 16 03/11/18 05:24 98.7 102 18 125/75 (92) 100 03/11/18 04:02 101 03/11/18 00:06 16 03/10/18 23:45 97.6 114 18 134/79 (97) 99 03/10/18 23:05 126 03/10/18 21:47 20 03/10/18 20:08 97.5 119 16 130/84 (99) 97 03/10/18 19:09 125 03/10/18 17:37 12 03/10/18 17:09 16 03/10/18 16:00 122 03/10/18 12:43 98.7 115 20 142/86 (104) 98 03/10/18 12:00 121 03/10/18 09:23 114 03/10/18 08:58 98.6 115 16 128/76 (93) 96 03/10/18 08:19 18 Result Diagram: 03/11/18 0608 03/10/18 1700 Laboratory Results Laboratory Tests Test 03/10/18 09:11 03/10/18 17:00 03/11/18 06:08 03/11/18 06:18 Urine Color Straw Urine Turbidity CLEAR Urine pH 8.0 Urine Specific [place] 1.004 Urine Protein NEG mg/dL Urine Glucose (UA) NEG mg/dL Urine Ketones NEG mg/dL Urine Occult Blood NEG Urine Nitrite NEG Urine Bilirubin NEG Urine Urobilinogen LESS THAN 2 mg/dL Urine Leukocyte Esterase NEG Urine RBC 2 /hpf Urine WBC 4 /hpf Microscopic Urinalysis Comment CULT NOT INDICATED White Blood Count 12.4 TH/MM3 9.2 TH/MM3 Red Blood Count 4.16 MIL/MM3 3.79 MIL/MM3 Hemoglobin 10.8 GM/DL 10.0 GM/DL Hematocrit 33.8 % 30.6 % Mean Corpuscular Volume 81.4 FL 80.9 FL Mean Corpuscular Hemoglobin 25.9 PG 26.4 PG Mean Corpuscular Hemoglobin Concent 31.8 % 32.7 % Red Cell Distribution Width 17.0 % 16.7 % Platelet Count 302 TH/MM3 240 TH/MM3 Mean Platelet Volume 8.5 FL 8.2 FL Neutrophils (%) (Auto) 83.9 % 77.3 % Lymphocytes (%) (Auto) 7.5 % 10.8 % Monocytes (%) (Auto) 7.9 % 8.4 % Eosinophils (%) (Auto) 0.5 % 3.0 % Basophils (%) (Auto) 0.2 % 0.5 % Neutrophils # (Auto) 10.4 TH/MM3 7.2 TH/MM3 Lymphocytes # (Auto) 0.9 TH/MM3 1.0 TH/MM3 Monocytes # (Auto) 1.0 TH/MM3 0.8 TH/MM3 Eosinophils # (Auto) 0.1 TH/MM3 0.3 TH/MM3 Basophils # (Auto) 0.0 TH/MM3 0.0 TH/MM3 CBC Comment DIFF FINAL DIFF FINAL Differential Comment Blood Urea Nitrogen 4 MG/DL Creatinine 0.66 MG/DL Random Glucose 126 MG/DL Calcium Level 7.8 MG/DL Phosphorus Level 0.7 MG/DL Magnesium Level 1.7 MG/DL Sodium Level 141 MEQ/L Potassium Level 3.7 MEQ/L Chloride Level 110 MEQ/L Carbon Dioxide Level 24.7 MEQ/L Anion Gap 6 MEQ/L Estimat Glomerular Filtration Rate 96 ML/MIN Lactic Acid Level 1.6 mmol/L Free Thyroxine 1.78 NG/DL Thyroid Stimulating Hormone 3rd Gen 1.310 uIU/ML Culture Results Microbiology Date/Time Source Procedure Growth Status 03/10/18 19:03 Blood Peripheral Aerobic Blood Culture Pending Received 03/10/18 19:03 Blood Peripheral Anaerobic Blood Culture Pending Received 03/10/18 17:00 Blood Peripheral Aerobic Blood Culture Pending Received 03/10/18 17:00 Blood Peripheral Anaerobic Blood Culture Pending Received Imaging Studies Last Impressions Chest X-Ray 03/10/18 0000 Signed Impressions: CONCLUSION: 1. Mild patchy left lower lobe airspace disease concerning for developing pneu monia in the appropriate clinical setting. 2. Minimal right lung base airspace disease, likely atelectasis. Administered Medications Medications (Trade) Dose Ordered Sig/Karis Route PRN Reason Start Time Stop Time Status Last Admin Dose Admin Lactated Ringer's 1,000 ml @ 30 mls/hr Q24H PRN IV SEE LABEL COMMENTS 03/09/18 09:00 03/12/18 08:59 03/09/18 09:00 Povidone Iodine (Betadine 5% Antisepsis Kit) 1 applic BOX MAKER WOOD PRN EACH NARE SEE LABEL COMMENTS 03/09/18 09:00 03/12/18 08:59 03/09/18 09:00 Chlorhexidine Gluconate (Chlorhexidine 2% Cloth) 3 pack BOX MAKER [employer]OD PRN TOPICAL SEE LABEL COMMENTS 03/09/18 09:00 03/12/18 08:59 03/09/18 08:55 Metronidazole 100 ml @ 100 mls/hr BOX MAKER [employer]OD IV 03/09/18 09:30 03/12/18 09:29 03/09/18 11:35 Levofloxacin/ Dextrose 100 ml @ 100 mls/hr BOX MAKER WOOD IV 03/09/18 09:30 03/12/18 09:29 03/09/18 11:38 Docusate Sodium (Colace) 100 mg BID PO 03/09/18 21:00 03/10/18 20:13 Ondansetron HCl (Zofran Odt) 4 mg Q6H PRN PO NAUSEA OR VOMITING 03/09/18 15:45 03/10/18 03:14 Senna/Docusate Sodium (Bettye-Colace) 2 tab DAILY PO 03/10/18 09:00 03/10/18 08:02 Potassium Chloride/Dextrose/ Sod Cl 1,000 ml @ 125 mls/hr Q8H IV 03/09/18 15:42 03/11/18 05:29 Ketorolac Tromethamine (Toradol Inj) 30 mg Q6H IVP 03/09/18 17:00 03/12/18 11:01 03/11/18 05:29 Oxycodone/ Acetaminophen (Percocet 5-325 Mg) 1 tab Q4H PRN PO PAIN SCALE 1 TO 5 03/09/18 15:45 03/10/18 16:09 Oxycodone/ Acetaminophen (Percocet 5-325 Mg) 2 tab Q4H PRN PO PAIN SCALE 6 TO 10 03/09/18 15:45 03/10/18 03:10 Lorazepam (Ativan) 0.5 mg Q8H PRN PO ANXIETY 03/09/18 15:45 03/10/18 23:05 Morphine Sulfate (Morphine 1 Mg/ ml INTERNAL COMBUSTION ENGINE INSPECTOR) 30 mg UNSCH IV 03/09/18 15:45 03/10/18 17:37 INTERNAL COMBUSTION ENGINE INSPECTOR Dosage Infused (Pha) 1 Q8HR .XX 03/09/18 15:45 03/11/18 05:36 Levofloxacin/ Dextrose 100 ml @ 100 mls/hr Q24H IV 03/10/18 18:00 03/10/18 18:41 Metronidazole 100 ml @ 100 mls/hr Q8H IV 03/10/18 17:00 03/11/18 01:24 Objective Remarks GENERAL: Well-nourished, well-developed patient. SKIN: Warm and dry. HEAD: Normocephalic. EYES: No scleral icterus. No injection or drainage. Cardo: tachy without murmurs. RESPIRATORY: Breath sounds equal bilaterally. No accessory muscle use. GASTROINTESTINAL: Abdomen dressing intact, old drainage EXTREMITIES: teds MUSCULOSKELETAL: Adequate muscle tone. NEUROLOGICAL: No obvious focal deficit. Awake, alert, and oriented x3. PSYCHIATRIC: Appropriate mood and affect; insight and judgment normal. Assessment/Plan Problem List: (1) Tachycardia ICD Codes: R00.0 - Tachycardia, unspecified Status: Acute Plan: lab stat: lactic acid, cbc with diff, TSH and free T4, BMP, mag and phos blood cultures add: levaquin 500mg Q24 hours flagyl 500mg Q 8 hours tylenol 500mg X 1 now CXR PA/Lat continue IVF and INTERNAL COMBUSTION ENGINE INSPECTOR Percocet for breakthrough pain 03/11/18: post op atelectasis...continue IS, OOB and ambulation continue ABX tachycardia has improved some afebrile overnight low phos: labs pending will replace if needed will continue INTERNAL COMBUSTION ENGINE INSPECTOR with anticipation of discharge tomorrow Thank you to medicine team for assistance Attending Statement Patient was seen and evaluated this morning with Dr. Chavez. discussed with RN and patient. Anali Feliciano Mar 11, 2018 07:21
[2018-03-11 08:02] LABS: CALCIUM-PROTEIN CORRECTED 8.5 MG/DL (8.5-10.1); TOTAL PROTEIN 4.9 GM/DL (6.4-8.2)
[2018-03-11] MEDS: valACYclovir HCL 500 MG TAB PO SCH (08:15)
[2018-03-11] MEDS: DOCUSATE SODIUM 50 MG/SENNA 8.6 MG TAB PO SCH (08:16)
[2018-03-11] MEDS: SODIUM CHLORIDE 0.9% FLUSH 10 ML FLUSH IV FLUSH SCH ×2 (09:00→21:00)
[2018-03-11] MEDS ORDERED: POTASSIUM PHOSPHATE/SODIUM PHOSPHATE 250 MG TAB PO SCH (09:00)
[2018-03-11] MEDS: DOCUSATE SODIUM 100 MG CAP PO SCH ×2 (09:00→21:00)
--- NOTE | 2018-03-11 13:01 | RADRPT ---
EXAM DATE: 03/11/2018 12:51 PM EDT AGE/SEX: 47 years / Female INDICATIONS: Shortness of breath. CLINICAL DATA: This is the patient's initial encounter. Patient reports that signs and symptoms have been present for 1 day and indicates a pain score of 0/10. MEDICAL/SURGICAL HISTORY: None. None. COMPARISON: [facility] – [place], [place], CHEST PA & LAT, 03/10/2018. . FINDINGS: There continues to be a patchy infiltrate in the left lung base suggestive of pneumonia. There is bee n mild improvement with the mild infiltrate in the right lung base compared to the prior study. No de finite new infiltrates are seen. Possible small bilateral effusions.. The heart size is stable. The b jeffrey structures are stable. CONCLUSION: 1. There continues to be a patchy infiltrate in the left lung base suggestive of pneumonia. 2. Mild improved aeration of the right lung base. 3. Possible small bilateral effusions. Electronically signed by: Sami Franco MD 03/11/2018 1:00 PM EDT
[2018-03-11] MEDS: ONDANSETRON ODT 4 MG TAB PO PRN (17:04)
[2018-03-11] MEDS: LEVOFLOXACIN 500 MG PREMIX INJ 100 ML IV SCH (17:43)
[2018-03-11] MEDS: MORPHINE SULFATE 30 MG/30 ML PCA IV SCH (18:12)
[2018-03-11] MEDS: POTASSIUM PHOSPHATE MONOBASIC 500 MG TAB PO SCH (21:00)
[2018-03-11] MEDS: LORazepam 0.5 MG TAB PO PRN (23:09)
[2018-03-11] MEDS: oxyCODONE/ACETAMINOPHEN 5 MG/325 MG TAB PO PRN (23:10)
[2018-03-12] VITALS: BP 146/89; PULSE 105; RESP 18; TEMP 98.9; O2SAT 99
[2018-03-12] MEDS: metroNIDAZOLE 500 MG INJ 100 ML IV SCH ×2 (00:54→09:22)
[2018-03-12 04:00] VITALS: BP 105/74; PULSE 87; PULSE 99; RESP 16; TEMP 98.4; O2SAT 97
[2018-03-12] MEDS: PCA - TOTAL MG MORPHINE DELIVERED PER SHIFT SCH (04:52)
[2018-03-12] MEDS: KETOROLAC TROMETHAMINE 30 MG/ML (IVP) VIAL IVP SCH (04:52)
[2018-03-12] MEDS: POTASSIUM PHOSPHATE MONOBASIC 500 MG TAB PO SCH (04:52)
[2018-03-12 07:00] VITALS: PULSE 106
[2018-03-12] MEDS ORDERED: LORA-392 PO (07:15)
[2018-03-12] MEDS ORDERED: OXYC1TAB63 PO (07:15)
--- NOTE | 2018-03-12 07:36 | MD ---
cc: Laura Chavez MD, Andrew H MD Casimiro,Dory ALEXANDER DATE OF DISCHARGE: 03/12/2018 PROCEDURE: 03/09/2018. Exploratory laparotomy, total abdominal hysterectomy, bilateral salpingectomy, bilateral oophoropexy, aspiration of right ovarian cyst. PATHOLOGY: Consistent with large multiple uterine leiomyomas. HOSPITAL COURSE: Hospital course was notable for being febrile and tachycardic in the early postoperative period. Chest x-ray showed possible early infiltrate. Blood cultures were drawn, which are no growth to date. She was seen and evaluated. She had a normal TSH, but a slightly elevated free T4, concerns about possible infection, possible hyperthyroidism were entertained. Also, she had undergone a bilateral uterine artery embolization the Friday prior to admission and so these findings were thought also quite possible with post-embolization syndrome. Because of concern of infection, she was started on Levaquin and Flagyl. She defervesced with no fevers for greater than 36 hours. By the time of discharge, her pulse came down from the 130-140s down to 90s and at times around 100. Baseline pulse from office records ranged from the high 70s-100s. At the time of discharge, she is asymptomatic. She is tolerating oral intake, liquid and solids. She is voiding without difficulty, moving flatus, still ambulating without assistance. She is no longer using the HEALTH CARE COACH for pain control. She feels well. Pathology results are discussed with her and she is anxious to go home. PHYSICAL EXAM: VITAL SIGNS: She is afebrile. Pulse 87, respirations 16, blood pressure 105/74. GENERAL: Alert and oriented x 3, no acute distress. LUNGS: Clear. CARDIOVASCULAR: Regular rate and rhythm. ABDOMEN: Soft. Dressing is removed. Steri-Strips are intact. The incision is clean, dry. GYNECOLOGIC: No bleeding. EXTREMITIES: Nontender. ASSESSMENT: Postoperative day 3, doing well. Activities and restrictions discussed. Pathology reviewed. Questions were asked and answered. She expressed good understanding. PLAN: Anticipate she will be discharged to home today. She is to contact your office to schedule a followup in 2 weeks. She is to resume prior medications. She will have prescriptions for Percocet and Ativan as well as Levaquin and Flagyl to continue for 5 additional days. Our office number is made available should she have any questions or problems between now and the time of scheduled followup. She understands and was grateful for the care provided. MD NANCY Lee/PAT , 07:20 AM , 07:35 AM
[2018-03-12] MEDS: D5-1/2 NS + KCL 20 MEQ INJ 1,000 ML IV SCH (07:42)
[2018-03-12 08:00] VITALS: BP 125/81; PULSE 81; RESP 18; TEMP 97.8; O2SAT 96
[2018-03-12] MEDS: valACYclovir HCL 500 MG TAB PO SCH (09:22)
[2018-03-12] MEDS: DOCUSATE SODIUM 100 MG CAP PO SCH (09:22)
[2018-03-12] MEDS: SODIUM CHLORIDE 0.9% FLUSH 10 ML FLUSH IV FLUSH SCH (09:22)
[2018-03-12] MEDS: DOCUSATE SODIUM 50 MG/SENNA 8.6 MG TAB PO SCH (09:22)
[2018-03-12] MEDS: oxyCODONE/ACETAMINOPHEN 5 MG/325 MG TAB PO PRN (09:49)
== END 2018-03-12 11:48 | disposition home or self-care (01) | DRG 742 ==
LOC: HSDC 08:23 → EDSTATUS 12:00 → HSDI 15:45 → HCIN 18:33
PROVIDERS: ADMIT Obstetrics & Gynecology Gynecologic Oncology; ATTEND Obstetrics & Gynecology Gynecologic Oncology
PROC: 0UT70ZZ Resection of Bilateral Fallopian Tubes, Open Approach (ICD-10-PCS; 2018-03-09)
PROC: 0U900ZZ Drainage of Right Ovary, Open Approach (ICD-10-PCS; 2018-03-09)
PROC: 0UT90ZZ Resection of Uterus, Open Approach (ICD-10-PCS; principal; 2018-03-09 11:41)
DX: D25.9 Leiomyoma of uterus, unspecified (principal); J98.11 Atelectasis; F41.9 Anxiety disorder, unspecified; R00.0 Tachycardia, unspecified; N83.201 Unspecified ovarian cyst, right side; R94.6 Abnormal results of thyroid function studies; R12 Heartburn; R11.0 Nausea
CPT/HCPCS: 71046; 80048; 81001; 83605; 83735; 84100; 84155; 84439; 84443; 85025; 86850; 86900; 86901; 86920; 87040; 88112; 88302; 88305; 88307; 88329; 88331; 94150; C9113; J1100; J1170; J1885; J1956; J2250; J2270; J2370; J2405; J2550; J2795; J3010; J3480; J7050; J7120